=== PATIENT | female | born 1935 | race Caucasian/White ===

== ENCOUNTER 2019-07-22 12:17 | Outpatient (CLI) | payer MEDICARE, BC ==
[~2019-07-22] VITALS: Ht 162.6 cm; Wt 78.0 kg
[~2019-07-22 12:17] MED LIST: ACTONEL5 MG PO; ALEVE 220MG220 MG PO; FERGON PO; FOLIC ACID PO; VITAMIN C250250 MG PO
[2019-07-22] MEDS ORDERED: HCTZ 25MG TAB25 MG PO (12:56)
== END 2019-07-22 16:00 | disposition home or self-care (01) ==
LOC: EUO 12:17
DX: Z45.2 Encounter for adjustment and management of vascular access device (principal); T84.53XA Infection and inflammatory reaction due to internal right knee prosthesis, initial encounter; Z96.651 Presence of right artificial knee joint
CPT/HCPCS: C1751